=== PATIENT | male | born 1955 | race Caucasian/White ===

== ENCOUNTER 2017-04-07 15:05 | Emergency (ER) | payer BC ==
[~2017-04-07] VITALS: Ht 180.3 cm; Wt 83.9 kg
[~2017-04-07 15:05] MED LIST: ASPIRIN81 MG PO; AUGMENTIN 875 M1 TAB PO; BACTROBAN OINT22 GM PO; MEDROL DOSEPAK4 MG PO; MULTAQ400 MG PO; NIASPAN1000 MG PO; PRAVASTATIN SOD40 MG PO; PREDNISONE20 M1 PO; XARELTO20 M1 PO
[2017-04-07] MEDS ORDERED: FLOMAX0.4 MG PO (15:21)
[2017-04-07] MEDS ORDERED: MEDROL DOSEPAK4 MG PO (16:05)
[2017-04-07] MEDS ORDERED: EPIPEN 2-PAK1 MG/ML IJ (16:05)
== END 2017-04-07 16:16 | disposition home or self-care (01) ==
LOC: ED 15:05
DX: T63.441A Toxic effect of venom of bees, accidental (unintentional), initial encounter (principal); Y92.9 Unspecified place or not applicable; Z79.899 Other long term (current) drug therapy

== ENCOUNTER 2018-07-16 17:15 | Emergency (ER) | payer BC ==
[~2018-07-16] VITALS: Ht 180.3 cm; Wt 83.9 kg
[~2018-07-16 17:15] MED LIST changes: +EPIPEN 2-PAK1 MG/ML IJ; +FLOMAX0.4 MG PO
== END 2018-07-16 18:37 | disposition home or self-care (01) ==
LOC: ED 17:15
DX: T63.441A Toxic effect of venom of bees, accidental (unintentional), initial encounter (principal); I48.91 Unspecified atrial fibrillation; Z79.01 Long term (current) use of anticoagulants; Z79.899 Other long term (current) drug therapy; Y92.9 Unspecified place or not applicable